=== PATIENT | female | born 1960 | race Caucasian/White ===

== ENCOUNTER 2017-09-22 15:37 | Emergency (ER) | payer OTHER ==
[2017-09-22 15:52] VITALS: BP 145/81; TEMP 97.9; BMI 27.4
--- NOTE | 2017-09-22 15:59 | PDOC ---
History of Present Illness - General Chief Complaint: Shortness of Breath Stated Complaint: RESPIRATORY Time Seen by Provider: 09/22/17 15:58 - History of Present Illness Initial Comments: 09/22/17 15:59 Ms. Chavez is a 56 yo female w/ pmh of COPD, hypertension, and HIV who presents c/o 2 day history of cough. She reports it started yesterday as she was driving home from visiting relatives and has persisted throughout the day. She has no other complaints but says "that is enough." Ms. Chavez tried a home breathing treatment but says it was not helpful for her cough. Allergies: Bactrim Past History - Past Medical History Allergies/Adverse Reactions: Allergies Allergy/AdvReac Type Severity Reaction Status Date / Time sulfamethoxazole Allergy Intermediate Rash Verified 09/22/17 15:48 [From Bactrim] Home Medications: Ambulatory Orders Aspirin [Aspirin EC] 81 mg PO DAILY #30 tablet. 04/24/17 Bupropion HCl [Wellbutrin -] 75 mg PO DAILY #30 tablet 04/24/17 Clotrimazole [Lotrimin 1% Cream -] 1 applic TP BID #1 tube 04/24/17 Cholecalciferol (Vitamin D3) [Vitamin D3] 50,000 unit PO MOFR 06/06/17 Guaifenesin [Mucinex -] 600 mg PO BID #14 tablet.er 06/06/17 Albuterol Sulfate Inhaler - [Ventolin HFA Inhaler -] 1 - 2 inh IH QID #1 inhaler 09/10/17 Atorvastatin Ca [Lipitor] 20 mg PO HS #30 tablet 09/10/17 Emtricitabine [Emtriva -] 1 tab PO DAILY #30 capsule 09/10/17 Etravirine [Intelence -] 200 mg PO BID #60 tablet 09/10/17 Hydrocortisone 1% Cream [Hytone 1% Cream -] 1 applic TP DAILY #1 tube 09/10/17 Ibuprofen [Motrin -] 600 mg PO BID PRN #30 tablet MDD 2 09/10/17 Lisinopril [Zestril] 10 mg PO DAILY #30 tablet 09/10/17 Multivitamin with Minerals [Icaps Plus] 1 each PO DAILY #30 tablet 09/10/17 Raltegravir [Isentress] 1 tab PO BID #60 tab 09/10/17 Theophylline Anhydrous [Ancelmo-24] 300 mg PO DAILY #30 cap.er.24h 09/10/17 Mirtazapine [Remeron -] 15 tablet PO HS #30 tablet 09/18/17 Prednisone 40 mg PO DAILY 4 Days #12 tablet 09/22/17 Anemia: No Asthma: Yes Cancer: No Cardiac Disorders: No CVA: No COPD: Yes CHF: No Dementia: No Diabetes: No GI Disorders: No Disorders: No HTN: Yes Hypercholesterolemia: No Liver Disease: No Seizures: No Thyroid Disease: No - Surgical History Abdominal Surgery: Yes (FOR ECTOPIC ) - Immunization History Immunization Up to Date: Yes - Suicide/Smoking/Psychosocial Hx Smoking Status: Yes Smoking History: Current every day smoker Have you smoked in the past 12 months: No Number of Cigarettes Smoked Daily: 10 Cigars Per Day: 0 Information on smoking cessation initiated: No 'Breaking Loose' booklet given: 03/11/15 Hx Alcohol Use: No Drug/Substance Use Hx: No Substance Use Type: None Hx Substance Use Treatment: Yes (detox, 12 step) Review of Systems - Review of Systems Comments:: 09/22/17 16:27 GENERAL/CONSTITUTIONAL: No fever or chills. No weakness. HEAD, EYES, EARS, NOSE AND THROAT: No change in vision. No ear pain or discharge. No sore throat. CARDIOVASCULAR: No chest pain or shortness of breath RESPIRATORY: +Cough as described. No wheezing or hemoptysis. GASTROINTESTINAL: No nausea, vomiting, diarrhea or constipation. GENITOURINARY: No dysuria, frequency, or change in urination. MUSCULOSKELETAL: No joint or muscle swelling or pain. No neck or back pain. SKIN: No rash NEUROLOGIC: No headache, vertigo, loss of consciousness, or change in strength/ sensation. ENDOCRINE: No increased thirst. No abnormal weight change HEMATOLOGIC/LYMPHATIC: No anemia, easy bleeding, or history of blood clots. ALLERGIC/IMMUNOLOGIC: No hives or skin allergy. *Physical Exam - Vital Signs Last Vital Signs Temp Pulse Resp BP Pulse Ox 97.9 F 104 H 20 145/81 95 09/22/17 15:48 09/22/17 15:48 09/22/17 15:48 09/22/17 15:48 09/22/17 15:48 - Physical Exam Comments: 09/22/17 16:28 GENERAL: Awake, alert, and fully oriented, in no acute distress HEAD: No signs of trauma, normocephalic, atraumatic EYES: PERRLA, EOMI, sclera anicteric, conjunctiva clear ENT: Auricles normal inspection, hearing grossly normal, nares patent, oropharynx clear without exudates. Moist mucosa NECK: Normal ROM, supple, no lymphadenopathy, JVD, or masses LUNGS: +End inspiratory wheezes appreciated. Lungs sound tight diffusely. No distress, speaks full sentences HEART: Regular rate and rhythm, normal S1 and S2, no murmurs, rubs or gallops, peripheral pulses normal and equal bilaterally. ABDOMEN: Soft, nontender, normoactive bowel sounds. No guarding, no rebound. No masses EXTREMITIES: Normal inspection, Normal range of motion, no edema. No clubbing or cyanosis. NEUROLOGICAL: Cranial nerves II through XII grossly intact. Normal speech, normal gait, no focal sensorimotor deficits SKIN: Warm, Dry, normal turgor, no rashes or lesions noted. ED Treatment Course - LABORATORY CBC & Chemistry Diagram: 09/22/17 16:26 09/22/17 16:26 Medical Decision Making - Medical Decision Making 09/22/17 17:00 Ms. Chavez is very concerned about bronchitis and pneumonia. Wanted to get checked out before "things got worse." With COPD history and tight lung exam will evaluate with CXR and provide breathing treatments for symptomatic relief. Provided no acute findings will give steroid treatment and discharge home with prednisone. 09/22/17 18:16 No acute findings on CXR. Rx for prednisone sent to pharmacy as planned. Patient verbalized understanding to f/u as needed for continued cough, new onset fever, chills, etc. *DC/Admit/Observation/Transfer Diagnosis at time of Disposition: Cough - Discharge Dispostion Disposition: HOME - Prescriptions Prescriptions: Prednisone 40 mg PO DAILY 4 Days #12 tablet - Referrals Referrals: Aniya Hagen GIRL FRIDAY [Primary Care Provider] - - Patient Instructions Printed Discharge Instructions: DI for Cough -- Adult Additional Instructions: Please take prednisone as proscribed for cough. Follow up with PCP as needed and return to ER if any new onset pain, fever, chills, worsening or continuing symptoms. - Post Discharge Activity
[2017-09-22] MEDS ORDERED: SODIUM CHLORIDE 1,000 ML IV STA (16:23)
[2017-09-22] MEDS ORDERED: ALBUTEROL SO4 2.5/IPRATROPIUM 0.5 INH SOL 3 ML VIAL.NEB. NEB ONE ×4 (16:39→18:08)
[2017-09-22] MEDS: ALBUTEROL SO4 2.5/IPRATROPIUM 0.5 INH SOL 3 ML VIAL.NEB. NEB SCH ×3 (16:42→17:30)
--- NOTE | 2017-09-22 16:44 | PDOC ---
Attending Attestation - HPI HPI: 09/22/17 16:44 The patient is a 56 year old female with a significant past medical history of chronic obstructive pulmonary disorder, hypertension, and HIV who presents to the ED with complaints of cough. The patient reports a sudden onset of a dry non productive cough yesterday. Patient tried breathing treatment at home with no relief. Denies fever or chills. Denies nausea, vomiting, or diarrhea. Denies chest pain. Denies any other symptoms. ROS: A complete review of 10 out of 10 review of systems is taken and is negative apart from what is previously mentioned below and in the HPI. - Physicial Exam PE: 09/22/17 16:44 Vitals: Triage Vital signs reviewed General Appearance: no acute distress, well nourished well developed Head: Atraumatic Neck: Supple; No Nucal rigidity Chest Wall: Nontender Cardiac: Regular rate and rhythm, no murmurs, no rubs, no gallops Lungs: + wheezing bilaterally. Abdomen: Soft, nondistended, normal bowel sounds, nontender to palpation Extremities: Full range of motion to all extremities, no cyanosis, clubbing, or edema Skin: Warm and dry, no rashes or lesions, no rash, no petechiae Neuro: AOX3; Cranial Nerves 2-12 grossly intact, Strength intact to all extremities, Sensation intact to all extremities, Psych: Normal mood, normal affects - Medical Decision Making 09/22/17 16:44 Documentation prepared by Krystal Meléndez, acting as medical records tech for Luis Cantrell MD <Krystal Meléndez - Last Filed: 09/22/17 16:44> - Resident Resident Name: Herber Barreto - ED Attending Attestation I have performed the following: I have examined & evaluated the patient, The case was reviewed & discussed with the resident, I agree w/resident's findings & plan, Exceptions are as noted - Medical Decision Making Well-appearing no apparent distress patient with viral URI same symptoms as her daughter has. Complicated by reactive airway disease Status post 2 nebs patient still with slight wheeze we'll treat with Solu- Medrol 1 additional neb and reassess. <Luis Cantrell - Last Filed: 09/22/17 17:59> Heart Score/ECG Review #1 09/22/17 16:45 EKG performed at 16:10 demonstrates rate of 90 bpm, rhythm of sinus, axis equal to normal. no T wave inversions, no ST elevations <Krystal Meléndez - Last Filed: 09/22/17 16:44>
[2017-09-22 16:47] LABS: BASOPHIL 0.8 % (0-2.0); EOSINOPHIL 0.4 % (0-4.5); MCH 32.6 pg (25.7-33.7); MEAN CELL VOLUME 95.8 fl (80-96); MEAN PLT VOLUME 9.9 fl (7.5-11.1); NEUTROPHILS 83.6 % (42.8-82.8); PLATELET COUNT 166 K/MM3 (134-434); RDW 13.4 % (11.6-15.6); WHITE BLOOD COUNT 8.3 K/mm3 (4.0-10.0)
[2017-09-22 17:16] LABS: ALBUMIN 3.7 g/dl (3.4-5.0); ANION GAP 6 (8-16); BILIRUBIN,TOTAL 0.3 mg/dL (0.2-1.0); CALCIUM 8.3 mg/dL (8.5-10.1); CO2 26 mmol/L (21-32); CREATININE 0.7 mg/dL (0.55-1.02); GLUCOSE,RANDOM 124 mg/dL (74-106); SGPT/ALT 22 U/L (12-78); TOT PROT 6.9 g/dl (6.4-8.2)
[2017-09-22 17:17] LABS: ALK PHOS 105 U/L (45-117)
[2017-09-22 17:19] LABS: SGOT/AST 12 U/L (15-37)
[2017-09-22] MEDS ORDERED: methylPREDNISolone NA SUCC 125 MG/2 ML VIAL IVPUSH ONE (17:56)
[2017-09-22 18:27] VITALS: PULSE 100
--- NOTE | 2017-09-23 14:06 | EKG ---
Test Reason : Blood Pressure : / mmHG Vent. Rate : 090 BPM Atrial Rate : 090 BPM P-R Int : 156 ms QRS Dur : 070 ms QT Int : 360 ms P-R-T Axes : 042 016 052 degrees QTc Int : 440 ms NORMAL SINUS RHYTHM CANNOT RULE OUT ANTERIOR INFARCT (CITED ON OR BEFORE 30-DEC-2008) LOW VOLTAGE QRS ABNORMAL ECG WHEN COMPARED WITH ECG OF 16-MAR-2012 08:30, NO SIGNIFICANT CHANGE WAS FOUND Confirmed by NIXON EAST MD ([id number]) on 09/23/2017 2:06:08 PM Referred By: Confirmed By:NIXON EAST MD
== END 2017-09-22 18:27 | disposition home or self-care (01) ==
LOC: JER 15:37
PROC: 3E0F7GC Introduction of Other Therapeutic Substance into Respiratory Tract, Via Natural or Artificial Opening (ICD-10-PCS; principal; 2017-09-22)
PROC: 3E0F7GC Introduction of Other Therapeutic Substance into Respiratory Tract, Via Natural or Artificial Opening (ICD-10-PCS; 2017-09-22)
PROC: 3E0337Z Introduction of Electrolytic and Water Balance Substance into Peripheral Vein, Percutaneous Approach (ICD-10-PCS; 2017-09-22)
PROC: 3E0333Z Introduction of Anti-inflammatory into Peripheral Vein, Percutaneous Approach (ICD-10-PCS; 2017-09-22)
DX: R05 Cough (principal); J44.9 Chronic obstructive pulmonary disease, unspecified; J45.909 Unspecified asthma, uncomplicated; I10 Essential (primary) hypertension; Z21 Asymptomatic human immunodeficiency virus [HIV] infection status; F17.210 Nicotine dependence, cigarettes, uncomplicated
CPT/HCPCS: 36415; 71020-TC; 80053; 85025; 87804; 93005; 93010; 94640; 96361; 96374; 99283-25

== ENCOUNTER 2017-11-13 10:35 | Emergency (ER) | payer OTHER ==
[2017-11-13 10:42] VITALS: TEMP 98.2; BMI 25.8
[2017-11-13] MEDS ORDERED: methylPREDNISolone NA SUCC 125 MG/2 ML VIAL IVPUSH ONE (10:53)
--- NOTE | 2017-11-13 10:53 | PDOC ---
History of Present Illness - General Chief Complaint: Shortness of Breath Stated Complaint: ASTHMA, SOB Time Seen by Provider: 11/13/17 10:49 - History of Present Illness Initial Comments: 11/13/17 10:54 56 F with h/o COPD, HTN, HIV (on HAART, last VL undetectable), presenting with 2 days of SOB and chest tightness. Pt states that it began last night at rest. Reports that it feels like a COPD flare but worse. She reports subjective fevers and chills but only measured a tempt of 99.0. Pt states that she used her nebulizers at home and took half a pill of prednisone without any improvement. She denies leg swelling. Denies recent travel/immobilization. No h/ o DVT/PE. Past History - Past Medical History Allergies/Adverse Reactions: Allergies Allergy/AdvReac Type Severity Reaction Status Date / Time sulfamethoxazole Allergy Intermediate Rash Verified 11/13/17 10:42 [From Bactrim] Home Medications: Ambulatory Orders Aspirin [Aspirin EC] 81 mg PO DAILY #30 tablet. 04/24/17 Bupropion HCl [Wellbutrin -] 75 mg PO DAILY #30 tablet 04/24/17 Clotrimazole [Lotrimin 1% Cream -] 1 applic TP BID #1 tube 04/24/17 Cholecalciferol (Vitamin D3) [Vitamin D3] 50,000 unit PO MOFR 06/06/17 Guaifenesin [Mucinex -] 600 mg PO BID #14 tablet.er 06/06/17 Albuterol Sulfate Inhaler - [Ventolin HFA Inhaler -] 1 - 2 inh IH QID #1 inhaler 09/10/17 Atorvastatin Ca [Lipitor] 20 mg PO HS #30 tablet 09/10/17 Emtricitabine [Emtriva -] 1 tab PO DAILY #30 capsule 09/10/17 Etravirine [Intelence -] 200 mg PO BID #60 tablet 09/10/17 Hydrocortisone 1% Cream [Hytone 1% Cream -] 1 applic TP DAILY #1 tube 09/10/17 Ibuprofen [Motrin -] 600 mg PO BID PRN #30 tablet MDD 2 09/10/17 Lisinopril [Zestril] 10 mg PO DAILY #30 tablet 09/10/17 Multivitamin with Minerals [Icaps Plus] 1 each PO DAILY #30 tablet 09/10/17 Raltegravir [Isentress] 1 tab PO BID #60 tab 09/10/17 Theophylline Anhydrous [Ancelmo-24] 300 mg PO DAILY #30 cap.er.24h 09/10/17 Mirtazapine [Remeron -] 15 tablet PO HS #30 tablet 09/18/17 Prednisone 40 mg PO DAILY 4 Days #12 tablet 09/22/17 Azithromycin 250 mg PO DAILY #4 tablet 11/13/17 Prednisone [Prednisone 50 MG TABLETS] 50 mg PO DAILY #4 tablet 11/13/17 Anemia: No Asthma: Yes Cancer: No Cardiac Disorders: No CVA: No COPD: Yes CHF: No DVT: No Dementia: No Diabetes: No GI Disorders: No Disorders: No HTN: Yes Hypercholesterolemia: No Liver Disease: No Seizures: No Thyroid Disease: No Other medical history: SLEEP APNEA - Surgical History Abdominal Surgery: Yes (FOR ECTOPIC ) - Immunization History Immunization Up to Date: Yes - Suicide/Smoking/Psychosocial Hx Smoking Status: Yes Smoking History: Current every day smoker Have you smoked in the past 12 months: No Number of Cigarettes Smoked Daily: 20 Cigars Per Day: 0 Information on smoking cessation initiated: No 'Breaking Loose' booklet given: 03/11/15 Hx Alcohol Use: No Drug/Substance Use Hx: No Substance Use Type: None Hx Substance Use Treatment: Yes (detox, 12 step) Respiratory Specific PMHX - Complaint Specific PMHX Bronchitis: Yes TB (Tuberculosis): No Review of Systems - Review of Systems Comments:: 11/13/17 10:56 "GENERAL/CONSTITUTIONAL: No fever or chills. No weakness. HEAD, EYES, EARS, NOSE AND THROAT: No change in vision. No ear pain or discharge. No sore throat. CARDIOVASCULAR: + chest pressure RESPIRATORY: + SOB GASTROINTESTINAL: No nausea, vomiting, diarrhea or constipation. GENITOURINARY: No dysuria, frequency, or change in urination. MUSCULOSKELETAL: No joint or muscle swelling or pain. No neck or back pain. SKIN: No rash NEUROLOGIC: No headache, vertigo, loss of consciousness, or change in strength/ sensation. ENDOCRINE: No increased thirst. No abnormal weight change. HEMATOLOGIC/LYMPHATIC: No anemia, easy bleeding, or history of blood clots. ALLERGIC/IMMUNOLOGIC: No hives or skin allergy. " *Physical Exam - Vital Signs Last Vital Signs Temp Pulse Resp BP Pulse Ox 98.2 F 133 H 24 128/63 92 L 11/13/17 10:39 11/13/17 10:39 11/13/17 10:39 11/13/17 10:39 11/13/17 10:39 - Physical Exam Comments: 11/13/17 10:56 "GENERAL: Awake, alert, and fully oriented, in no acute distress HEAD: No signs of trauma EYES: PERRLA, EOMI, sclera anicteric, conjunctiva clear ENT: Auricles normal inspection, hearing grossly normal, nares patent, oropharynx clear without exudates. Moist mucosa NECK: Nontender, no stepoffs, Normal ROM, supple, no lymphadenopathy, JVD, or masses LUNGS: + inspiratory and expiratory wheezes, no rales or rhonchi HEART: Regular rate and rhythm, normal S1 and S2, no murmurs, rubs or gallops ABDOMEN: Soft, nontender, normoactive bowel sounds. No guarding, no rebound. No masses EXTREMITIES: Normal range of motion, no edema. No clubbing or cyanosis. No cords, erythema, or tenderness NEUROLOGICAL: Cranial nerves II through XII intact. 5/5 strength and sensation in all extremities, Normal speech, normal gait SKIN: Warm, Dry, normal turgor, no rashes or lesions noted. " ED Treatment Course - LABORATORY CBC & Chemistry Diagram: 11/13/17 12:05 11/13/17 12:05 - RADIOLOGY Radiology Studies Ordered: Category Date Time Status CHEST PA & LAT [RAD] Stat Radiology 11/13/17 10:53 Ordered Medical Decision Making - Medical Decision Making 11/13/17 10:57 56 F wit HIV, COPD, presenting with SOB and chest pressure. Found to be tachycardic and hypoxic in ER, with wheezes bilaterally on exam. Likely COPD flare. Pt with no evidence of volume overload on exam. No clinical signs of DVT. - Labs - CXR - Nebs, steroids, abx 11/13/17 13:24 CXR clear CBC,CMP WBC 10.3 K/mm3 (4.0-10.0) H 11/13/17 12:05 RBC 4.40 M/mm3 (3.60-5.2) 11/13/17 12:05 Hgb 13.7 GM/dL (10.7-15.3) 11/13/17 12:05 Hct 41.9 % (32.4-45.2) 11/13/17 12:05 MCV 95.3 fl (80-96) 11/13/17 12:05 MCH 31.1 pg (25.7-33.7) 11/13/17 12:05 MCHC 32.7 g/dl (32.0-36.0) 11/13/17 12:05 RDW 13.3 % (11.6-15.6) 11/13/17 12:05 Plt Count 196 K/MM3 (134-434) 11/13/17 12:05 MPV 9.3 fl (7.5-11.1) 11/13/17 12:05 Neutrophils % 79.7 % (42.8-82.8) 11/13/17 12:05 Lymphocytes % 11.7 % (8-40) 11/13/17 12:05 Monocytes % 8.0 % (3.8-10.2) D 11/13/17 12:05 Eosinophils % 0.1 % (0-4.5) 11/13/17 12:05 Basophils % 0.5 % (0-2.0) 11/13/17 12:05 Sodium 140 mmol/L (136-145) 11/13/17 12:05 Potassium 4.4 mmol/L (3.5-5.1) 11/13/17 12:05 Chloride 106 mmol/L (98-107) 11/13/17 12:05 Carbon Dioxide 25 mmol/L (21-32) 11/13/17 12:05 Anion Gap 9 (8-16) 11/13/17 12:05 BUN 14 mg/dL (7-18) 11/13/17 12:05 Creatinine 0.9 mg/dL (0.55-1.02) 11/13/17 12:05 Creat Clearance w eGFR > 60 (>60) 11/13/17 12:05 Random Glucose 109 mg/dL (74-106) H 11/13/17 12:05 Calcium 9.5 mg/dL (8.5-10.1) 11/13/17 12:05 Total Bilirubin 0.4 mg/dL (0.2-1.0) D 11/13/17 12:05 AST 18 U/L (15-37) D 11/13/17 12:05 ALT 23 U/L (12-78) 11/13/17 12:05 Alkaline Phosphatase 91 U/L (45-117) 11/13/17 12:05 LD Total 182 U/L (84-246) 11/13/17 12:05 Creatine Kinase 332 IU/L (26-192) H 11/13/17 12:05 Troponin I < 0.02 ng/ml (0.00-0.05) 11/13/17 12:05 B-Natriuretic Peptide 329.91 pg/ml (5-125) H 11/13/17 12:05 Total Protein 7.6 g/dl (6.4-8.2) 11/13/17 12:05 Albumin 4.1 g/dl (3.4-5.0) 11/13/17 12:05 Labs unremarkable. Pt re-evaluated s/p nebs and steroids. Now reports complete resolution of symptoms. Lung exam clear at this time with no wheezing. Will recheck vitals. 11/13/17 15:52 Vitals improving. Pt still slightly tachycardic but likely 2/2 beta agonist. Lungs remain clear. Pt with improved O2 sat. Pt well appearing, clinically stable for DC at this time. I discussed the physical exam findings, ancillary test results and final diagnoses with the patient. I answered all of the patient's questions. The patient was satisfied with the care received and felt comfortable with the discharge plan and treatment plan. The patient agrees to follow up with the primary care physician within 24-72 hours. *DC/Admit/Observation/Transfer Diagnosis at time of Disposition: COPD (chronic obstructive pulmonary disease) - Discharge Dispostion Disposition: HOME Condition at time of disposition: Improved - Prescriptions Prescriptions: Azithromycin 250 mg PO DAILY #4 tablet Prednisone [Prednisone 50 MG TABLETS] 50 mg PO DAILY #4 tablet - Referrals Referrals: Aniya Hagen NP [Primary Care Provider] - Júnior Stone MD [Staff Physician] - - Patient Instructions Printed Discharge Instructions: DI for Chronic Obstructive Pulmonary Disease Additional Instructions: Use your albuterol nebulizer every 4 hours as needed for coughing or wheezing. Take the prednisone and azithromycin as prescribed for 4 more days. If you experience any worsening chest pain, shortness of breath, fevers, or any other concerning symptoms, return to the ER immediately. Otherwise, follow up with your primary doctor or a co chairman within 1 week. Call the number provided to make an appointment with our co chairman. - Post Discharge Activity - Attestations Physician Attestion: 11/13/17 15:54 I, Dr. Dayton Galaviz MD, attest that this document has been prepared under my direction and personally reviewed by me in its entirety. I further attest, that it accurately reflects all work, treatment, procedures and medical decision -making performed by me.
[2017-11-13] MEDS ORDERED: ALBUTEROL SO4 2.5/IPRATROPIUM 0.5 INH SOL 3 ML VIAL.NEB. NEB ONE (11:24)
[2017-11-13] MEDS ORDERED: methylPREDNISolone NA SUCC 125 MG/2 ML VIAL ONE (11:24)
[2017-11-13] MEDS: ALBUTEROL SO4 2.5/IPRATROPIUM 0.5 INH SOL 3 ML VIAL.NEB. NEB SCH ×2 (11:29→11:55)
[2017-11-13 12:17] LABS: BASO % 0.5 % (0-2.0); EOS % 0.1 % (0-4.5); HEMATOCRIT 41.9 % (32.4-45.2); HEMOGLOBIN 13.7 GM/dL (10.7-15.3); LYMPH % 11.7 % (8-40); MCH 31.1 pg (25.7-33.7); MCHC 32.7 g/dl (32.0-36.0); MEAN CELL VOLUME 95.3 fl (80-96); MEAN PLT VOLUME 9.3 fl (7.5-11.1); NEUT % 79.7 % (42.8-82.8); PLATELET COUNT 196 K/MM3 (134-434); RDW 13.3 % (11.6-15.6); WHITE BLOOD COUNT 10.3 K/mm3 (4.0-10.0)
[2017-11-13 12:33] LABS: PROTHROMBIN TIME (PATIENT) 11.3 SEC (9.98-11.88)
[2017-11-13 12:36] LABS: ACTIVATED PTT 28.6 SECONDS (26.9-34.4)
[2017-11-13 12:38] LABS: ALBUMIN 4.1 g/dl (3.4-5.0); ANION GAP 9 (8-16); BLOOD UREA NITROGEN 14 mg/dL (7-18); CALCIUM 9.5 mg/dL (8.5-10.1); CHLORIDE 106 mmol/L (98-107); CO2 25 mmol/L (21-32); CREATININE 0.9 mg/dL (0.55-1.02); GLUCOSE,RANDOM 109 mg/dL (74-106); POTASSIUM 4.4 mmol/L (3.5-5.1); SGOT/AST 18 U/L (15-37); SGPT/ALT 23 U/L (12-78); SODIUM 140 mmol/L (136-145)
[2017-11-13] MEDS ORDERED: ALBUTEROL SO4 0.083% IH SOL 2.5 MG/3 ML VIAL.NEB. NEB ONE ×2 (12:41→12:42)
[2017-11-13] MEDS ORDERED: AZITHROMYCIN 500 MG TABLET PO ONE (12:41)
[2017-11-13 12:42] LABS: ALK PHOS 91 U/L (45-117); BILIRUBIN,TOTAL 0.4 mg/dL (0.2-1.0); LDH 182 U/L (84-246); N-TERMINAL BNP 329.91 pg/ml (5-125); TOT PROT 7.6 g/dl (6.4-8.2)
[2017-11-13] MEDS ORDERED: MAGNESIUM SULF 50% (8.12 MEQ/2 ML-1 GM VIAL) ONE (12:42)
[2017-11-13] MEDS ORDERED: AZITHROMYCIN 250 MG TABLET ONE (12:42)
[2017-11-13] MEDS ORDERED: SODIUM CHLORIDE 1,000 ML IV STA (13:52)
--- NOTE | 2017-11-13 15:23 | EKG ---
Test Reason : Blood Pressure : / mmHG Vent. Rate : 108 BPM Atrial Rate : 108 BPM P-R Int : 150 ms QRS Dur : 066 ms QT Int : 324 ms P-R-T Axes : 066 072 063 degrees QTc Int : 434 ms SINUS TACHYCARDIA OTHERWISE NORMAL ECG WHEN COMPARED WITH ECG OF 22-SEP-2017 16:10, BORDERLINE CRITERIA FOR INFERIOR INFARCT ARE NO LONGER PRESENT Confirmed by SHANTELL TAYLOR MD ([id number]) on 11/13/2017 3:23:03 PM Referred By: Confirmed By:SHANTELL TAYLOR MD
[2017-11-13 15:38] VITALS: BP 123/88; PULSE 116
== END 2017-11-13 16:18 | disposition home or self-care (01) ==
LOC: JER 10:35
PROC: 3E0F7GC Introduction of Other Therapeutic Substance into Respiratory Tract, Via Natural or Artificial Opening (ICD-10-PCS; principal; 2017-11-13)
PROC: 3E0F7GC Introduction of Other Therapeutic Substance into Respiratory Tract, Via Natural or Artificial Opening (ICD-10-PCS; 2017-11-13)
PROC: 3E033GC Introduction of Other Therapeutic Substance into Peripheral Vein, Percutaneous Approach (ICD-10-PCS; 2017-11-13)
PROC: 3E033NZ Introduction of Analgesics, Hypnotics, Sedatives into Peripheral Vein, Percutaneous Approach (ICD-10-PCS; 2017-11-13)
PROC: 3E0333Z Introduction of Anti-inflammatory into Peripheral Vein, Percutaneous Approach (ICD-10-PCS; 2017-11-13)
DX: J44.9 Chronic obstructive pulmonary disease, unspecified (principal); I10 Essential (primary) hypertension; J45.909 Unspecified asthma, uncomplicated; Z21 Asymptomatic human immunodeficiency virus [HIV] infection status; F17.210 Nicotine dependence, cigarettes, uncomplicated
CPT/HCPCS: 36415; 71046-TC; 80053; 82550; 82553; 83615; 83880; 84484; 85025; 85610; 85730; 87040; 93005; 93010; 99284-25

== ENCOUNTER 2018-01-25 10:58 | Emergency (ER) | payer OTHER ==
[2018-01-25 11:16] VITALS: TEMP 98.2; BMI 28.3
[2018-01-25] MEDS ORDERED: ACETAMINOPHEN 500 MG TABLET (FP) PO ONE (11:44)
[2018-01-25] MEDS ORDERED: METHOCARBAMOL 500 MG TABLET PO ONE (11:44)
[2018-01-25] MEDS ORDERED: ACETAMINOPHEN 325 MG TABLET (FP) ONE (11:47)
[2018-01-25] MEDS ORDERED: METHOCARBAMOL 500 MG TABLET ONE (11:47)
[2018-01-25] MEDS ORDERED: morphine CARPU-JECT 4 MG/1 ML DISP.SYRIN IVPUSH ONE (12:03)
[2018-01-25] MEDS ORDERED: SODIUM CHLORIDE 1,000 ML IV STA (12:03)
[2018-01-25] MEDS ORDERED: KETOROLAC TROMETHAMINE 30 MG/1 ML VIAL IVPUSH ONE (12:03)
[2018-01-25] MEDS ORDERED: morphine SULFATE 4 MG/ML VIAL ONE (12:17)
[2018-01-25] MEDS ORDERED: KETOROLAC TROMETHAMINE 30 MG/1 ML VIAL ONE (12:17)
[2018-01-25 12:26] LABS: HEMATOCRIT 39.9 % (32.4-45.2); HEMOGLOBIN 13.7 GM/dL (10.7-15.3); LYMPH % 41.8 % (8-40); MCHC 34.3 g/dl (32.0-36.0); MEAN CELL VOLUME 93.3 fl (80-96); MEAN PLT VOLUME 9.7 fl (7.5-11.1); MONO % 6.6 % (3.8-10.2); NEUT % 47.6 % (42.8-82.8); PLATELET COUNT 180 K/MM3 (134-434); RBC 4.28 M/mm3 (3.60-5.2); RDW 13.1 % (11.6-15.6); WHITE BLOOD COUNT 9.4 K/mm3 (4.0-10.0)
[2018-01-25 12:28] LABS: URINE APPEARANCE CLEAR; URINE BILIRUBIN NEGATIVE (<2.0 mg/dL); URINE BLOOD 1+ (NEGATIVE); URINE COLOR STRAW; URINE GLUCOSE (UA) NEGATIVE (NEGATIVE); URINE KETONE NEGATIVE (NEGATIVE); URINE LEUK ESTERASE NEGATIVE (NEGATIVE); URINE NITRITE NEGATIVE (NEGATIVE); URINE PROTEIN NEGATIVE (NEGATIVE); URINE UROBILINOGEN NEGATIVE mg/dL (0.2-1.0)
--- NOTE | 2018-01-25 12:28 | PDOC ---
History of Present Illness - General Chief Complaint: Back Pain Stated Complaint: BACK PAIN Time Seen by Provider: 01/25/18 11:33 History Source: Patient Exam Limitations: No Limitations - History of Present Illness Initial Comments: 01/25/18 12:30 Patient is 57F with history of COPD, HTN, HIV (last CD4 count 1368 in 09/13) here today complaining of back pain for 1 week after tripping and falling on a marble. Patient states that she was stepping out of the shower when she slipped on a marble, falling and twisting her back. She denies head trauma, landing on her back and LOC. She states the back pain has worsened over the past day, and that she has had to crawl to the bathroom. She states that the pain radiates from the left side of her back to the left side of her groin. Denies pain with urination, denies difficulty with urination. Denies saddle anesthesia, IV drug use, fevers, chills, focal weakness. Patient states that she has chronic back pain problems, but that it's usually on the left side. Patient states that she feels like she can't get comfortable. Past History - Past Medical History Allergies/Adverse Reactions: Allergies Allergy/AdvReac Type Severity Reaction Status Date / Time sulfamethoxazole Allergy Intermediate Rash Verified 01/25/18 11:13 [From Bactrim] Home Medications: Ambulatory Orders Aspirin [Aspirin EC] 81 mg PO DAILY #30 tablet. 04/24/17 Bupropion HCl [Wellbutrin -] 75 mg PO DAILY #30 tablet 04/24/17 Clotrimazole [Lotrimin 1% Cream -] 1 applic TP BID #1 tube 04/24/17 Cholecalciferol (Vitamin D3) [Vitamin D3] 50,000 unit PO MOFR 06/06/17 Guaifenesin [Mucinex -] 600 mg PO BID #14 tablet.er 06/06/17 Albuterol Sulfate Inhaler - [Ventolin HFA Inhaler -] 1 - 2 inh IH QID #1 inhaler 09/10/17 Atorvastatin Ca [Lipitor] 20 mg PO HS #30 tablet 09/10/17 Emtricitabine [Emtriva -] 1 tab PO DAILY #30 capsule 09/10/17 Etravirine [Intelence -] 200 mg PO BID #60 tablet 09/10/17 Hydrocortisone 1% Cream [Hytone 1% Cream -] 1 applic TP DAILY #1 tube 09/10/17 Ibuprofen [Motrin -] 600 mg PO BID PRN #30 tablet MDD 2 09/10/17 Lisinopril [Zestril] 10 mg PO DAILY #30 tablet 09/10/17 Multivitamin with Minerals [Icaps Plus] 1 each PO DAILY #30 tablet 09/10/17 Raltegravir [Isentress] 1 tab PO BID #60 tab 09/10/17 Theophylline Anhydrous [Ancelmo-24] 300 mg PO DAILY #30 cap.er.24h 09/10/17 Mirtazapine [Remeron -] 15 tablet PO HS #30 tablet 09/18/17 Prednisone 40 mg PO DAILY 4 Days #12 tablet 09/22/17 Azithromycin 250 mg PO DAILY #4 tablet 11/13/17 Prednisone [Prednisone 50 MG TABLETS] 50 mg PO DAILY #4 tablet 11/13/17 Oxycodone HCl/Acetaminophen [Percocet 5-325 mg Tablet -] 1 tab PO TID PRN #12 tablet MDD 3 01/25/18 Anemia: No Asthma: Yes Cancer: No Cardiac Disorders: No CVA: No COPD: Yes CHF: No DVT: No Dementia: No Diabetes: No GI Disorders: No Disorders: No HTN: Yes Hypercholesterolemia: No Liver Disease: No Seizures: No Thyroid Disease: No - Surgical History Abdominal Surgery: Yes (FOR ECTOPIC ) - Immunization History Immunization Up to Date: Yes - Suicide/Smoking/Psychosocial Hx Smoking Status: Yes Smoking History: Current every day smoker Have you smoked in the past 12 months: No Number of Cigarettes Smoked Daily: 20 Cigars Per Day: 0 Information on smoking cessation initiated: No 'Breaking Loose' booklet given: 03/11/15 Hx Alcohol Use: No Drug/Substance Use Hx: No Substance Use Type: None Hx Substance Use Treatment: Yes (detox, 12 step) Review of Systems - Review of Systems Comments:: 01/25/18 12:34 GENERAL/CONSTITUTIONAL: No fever or chills. No weakness. HEAD, EYES, EARS, NOSE AND THROAT: No change in vision. No sore throat. CARDIOVASCULAR: No chest pain or shortness of breath RESPIRATORY: No cough, wheezing, or hemoptysis. GASTROINTESTINAL: No nausea, vomiting, diarrhea or constipation. GENITOURINARY: No dysuria, frequency, or change in urination. MUSCULOSKELETAL: No joint or muscle swelling or pain. Positive for back pain. SKIN: No rash NEUROLOGIC: No headache, vertigo, loss of consciousness, or change in strength/ sensation. HEMATOLOGIC/LYMPHATIC: No anemia, easy bleeding, or history of blood clots. ALLERGIC/IMMUNOLOGIC: No hives or skin allergy. *Physical Exam - Vital Signs Last Vital Signs Temp Pulse Resp BP Pulse Ox 98.2 F 80 18 106/90 95 01/25/18 11:13 01/25/18 11:13 01/25/18 11:13 01/25/18 11:13 01/25/18 11:13 - Physical Exam Comments: 01/25/18 12:34 GENERAL: Awake, alert, and fully oriented, tearful, on her side HEAD: No signs of trauma, normocephalic, atraumatic EYES: PERRLA, EOMI, sclera anicteric, conjunctiva clear ENT: Auricles normal inspection, hearing grossly normal, nares patent, oropharynx clear without exudates. Moist mucosa NECK: Normal ROM, supple, no lymphadenopathy, JVD, or masses BACK: No signs of trauma, nontender midline, distractable tenderness on left paraspinal issues. LUNGS: No distress, speaks full sentences, clear to auscultation bilaterally HEART: Regular rate and rhythm, normal S1 and S2, no murmurs, rubs or gallops, peripheral pulses normal and equal bilaterally. ABDOMEN: Soft, nontender, normoactive bowel sounds. No guarding, no rebound. No masses EXTREMITIES: Normal inspection, Normal range of motion, no edema. No clubbing or cyanosis. NEUROLOGICAL: Cranial nerves II through XII grossly intact. Normal speech, no focal sensorimotor deficits SKIN: Warm, Dry, normal turgor, no rashes or lesions noted. ED Treatment Course - LABORATORY CBC & Chemistry Diagram: 01/25/18 12:10 01/25/18 12:10 - RADIOLOGY Radiology Studies Ordered: Category Date Time Status SPIRAL- RENAL-STONE CT [CT] Stat CT Scan 01/25/18 12:06 Ordered - Medications Given in the ED: ED Medications Discontinued Medications Generic Name Dose Route Start Last Admin Trade Name Freq PRN Reason Stop Dose Admin Acetaminophen 975 mg 01/25/18 11:44 01/25/18 11:49 Tylenol - PO 01/25/18 11:45 975 mg ONCE ONE Administration Ketorolac Tromethamine 30 mg 01/25/18 12:03 01/25/18 12:20 Toradol Injection - IVPUSH 01/25/18 12:04 30 mg ONCE ONE Administration Methocarbamol 500 mg 01/25/18 11:44 01/25/18 11:49 Robaxin - PO 01/25/18 11:45 500 mg ONCE ONE Administration Morphine Sulfate 4 mg 01/25/18 12:03 01/25/18 12:20 Morphine Injection - IVPUSH 01/25/18 12:04 4 mg ONCE ONE Administration Medical Decision Making - Medical Decision Making 01/25/18 12:35 Patient is 57F with history of COPD, HTN, HIV here today complaining of back pain. Vital signs stable and normal. Exam not very consistent with msk back pain. Concerned for kidney stones with confounding presentation. DDx includes, but is not limited to: MSK back pain, kidney stones, pyleonephritis. Bedside ultrasound used to visualize aorta with maximal caliber 1.4cm. Will evaluate further with cbc, cmp, ua, uc, spiral ct. Will treat with morphine, toradol and fluids. 01/25/18 13:26 Laboratory Tests 01/25/18 01/25/18 01/25/18 12:10 12:10 12:10 WBC 9.4 Hgb 13.7 Hct 39.9 Plt Count 180 BUN 16 Creatinine 0.6 Urine Blood 1+ H CBC normal. CMP reassuring. UA shows blood, no signs of infection. CT pending. Patient reassessed, says she feels much better after administration of morphine and toradol. 01/25/18 15:08 CT shows L2-L3 foraminal disc herniation that is probably extruded. No kidney stones, possible cholelithiasis, and aortic wall calcifications. 01/25/18 15:18 Patient reassessed. Pain improved. Able to ambulate. Will discharge home with pain medication and instructions to follow up with primary care physician. *DC/Admit/Observation/Transfer Diagnosis at time of Disposition: Herniated disc - Discharge Dispostion Disposition: HOME Condition at time of disposition: Good Admit: No - Prescriptions Prescriptions: Oxycodone HCl/Acetaminophen [Percocet 5-325 mg Tablet -] 1 tab PO TID PRN #12 tablet MDD 3 PRN Reason: Severe Pain - Referrals - Patient Instructions Printed Discharge Instructions: DI for Herniated Disc Additional Instructions: You were seen today in the ED for back pain. You have a herniated disc in your back. You have been prescribed percocet for pain control. Please do not take the medication and use heavy machinery or mix with alcohol. Please return if you have any new, worsening or concerning symptoms. Please follow up with your primary care physician this week. - Post Discharge Activity
[2018-01-25 12:38] LABS: EPI CELLS RARE /HPF (FEW); URINE MUCUS RARE
[2018-01-25 12:51] LABS: ALBUMIN 3.9 g/dl (3.4-5.0); ALK PHOS 87 U/L (45-117); ANION GAP 3 (8-16); BILIRUBIN,TOTAL 0.5 mg/dL (0.2-1.0); BLOOD UREA NITROGEN 16 mg/dL (7-18); CALCIUM 8.9 mg/dL (8.5-10.1); CHLORIDE 112 mmol/L (98-107); CO2 24 mmol/L (21-32); CREATININE 0.6 mg/dL (0.55-1.02); GLUCOSE,RANDOM 94 mg/dL (74-106); POTASSIUM 3.7 mmol/L (3.5-5.1); SGOT/AST 12 U/L (15-37); SGPT/ALT 22 U/L (12-78); SODIUM 139 mmol/L (136-145); TOT PROT 6.9 g/dl (6.4-8.2)
--- NOTE | 2018-01-25 13:02 | PDOC ---
Attending Attestation - Resident Resident Name: LeninRyan - ED Attending Attestation I have performed the following: I have examined & evaluated the patient, The case was reviewed & discussed with the resident, I agree w/resident's findings & plan, Exceptions are as noted - HPI HPI: 01/25/18 12:42 57 yo F presenting with back painx 1 week s/p fall from standing height She twisted her back Pt ambulatory since then but her pain worsened today She was unable to ambulate Pain in - Physicial Exam PE: 01/25/18 12:45 GENERAL: The patient is crying in pain HEAD: Normal with no signs of trauma. EYES: PERRLA, EOMI, sclera anicteric, conjunctiva clear. LUNGS: Breath sounds equal, clear to auscultation bilaterally. No wheezes, and no crackles. HEART:Regular rate and rhythm, normal S1 and S2 without murmur, rub or gallop. ABDOMEN: Soft, nontender, normoactive bowel sounds. EXTREMITIES: Normal range of motion NEUROLOGICAL: Cranial nerves II through XII grossly intact. Normal speech. No focal neurological deficits. MUSCULOSKELETAL: Left paraspinal back tenderness - Medical Decision Making 01/25/18 15:20 57 yo F presenting with back pain CT demonstrates lumbar herniation Pt is ambulatory with severe pain Will: give pain medications Will re assess clinical impression: lower back pain, initial presentation
[2018-01-25 15:29] VITALS: BP 127/92; PULSE 90
--- NOTE | 2018-01-26 16:17 | EKG ---
Test Reason : Blood Pressure : / mmHG Vent. Rate : 075 BPM Atrial Rate : 075 BPM P-R Int : 170 ms QRS Dur : 074 ms QT Int : 420 ms P-R-T Axes : 051 027 060 degrees QTc Int : 469 ms NORMAL SINUS RHYTHM POSSIBLE INFERIOR INFARCT , AGE UNDETERMINED INCOMPLETE RBBB ABNORMAL ECG Confirmed by MD KAYLEE, KAYKAY ([id number]) on 01/26/2018 4:17:13 PM Referred By: Confirmed By:KAYKAY PAGE MD
--- NOTE | 2018-01-28 16:57 | PN ---
Holistic Progress Note Subjective: TC from patient - seen in ED at [facility] 01/25/18 for severe back pain due to fall - still in pain, no incontinence - noted CT results - referred to see dr glaser but she is not sure she can get to [facility] - referred to dr florez. will give flexeril, continue percocet 5 until she can see me next week. States her daughter is staying with her and helping. Teary, states her pain is excruciating. Using CPAP machine. Patient is known to me but I have not seen her since august 2017. Updated, reviewed medications she is currently taking. Plan: f/u with dr florez and/or alfredito - f/u with me next week saturday02/04/18 and will refer for PT, consider need for MRI to go back to ED if red flags (incontinence, worsening pain) - Medications Home Medications: Home Medications Medication Instructions Recorded Cholecalciferol (Vitamin D3) 50,000 unit PO MOFR 06/06/17 [Vitamin D3] Albuterol Sulfate Inhaler - 1 - 2 inh IH QID #1 inhaler 09/10/17 [Ventolin HFA Inhaler -] Emtricitabine [Emtriva -] 1 tab PO DAILY #30 capsule 09/10/17 Etravirine [Intelence -] 200 mg PO BID #60 tablet 09/10/17 Multivitamin with Minerals [Icaps 1 each PO DAILY #30 tablet 09/10/17 Plus] Raltegravir [Isentress] 1 tab PO BID #60 tab 09/10/17 Theophylline Anhydrous [Ancelmo-24] 300 mg PO DAILY #30 cap.er.24h 09/10/17 Oxycodone HCl/Acetaminophen 1 tab PO TID PRN #12 tablet MDD 5 01/25/18 [Percocet 5-325 mg Tablet -] Cyclobenzaprine HCl [Flexeril -] 10 mg PO TID #90 tablet 01/28/18 Oxycodone HCl/Acetaminophen 1 each PO TID PRN #21 tablet MDD 3 01/28/18 [Oxycodone-Acetaminophen 5-325]
== END 2018-01-25 15:33 | disposition home or self-care (01) ==
LOC: JER 10:58
PROC: 3E0337Z Introduction of Electrolytic and Water Balance Substance into Peripheral Vein, Percutaneous Approach (ICD-10-PCS; principal; 2018-01-25)
PROC: 3E033NZ Introduction of Analgesics, Hypnotics, Sedatives into Peripheral Vein, Percutaneous Approach (ICD-10-PCS; 2018-01-25)
PROC: 3E0333Z Introduction of Anti-inflammatory into Peripheral Vein, Percutaneous Approach (ICD-10-PCS; 2018-01-25)
DX: M51.26 Other intervertebral disc displacement, lumbar region (principal); W01.0XXA Fall on same level from slipping, tripping and stumbling without subsequent striking against object, initial encounter; Y93.E1 Activity, personal bathing and showering; Y92.031 Bathroom in apartment as the place of occurrence of the external cause; Y99.8 Other external cause status; I10 Essential (primary) hypertension; J44.9 Chronic obstructive pulmonary disease, unspecified; J45.909 Unspecified asthma, uncomplicated; Z21 Asymptomatic human immunodeficiency virus [HIV] infection status; F17.210 Nicotine dependence, cigarettes, uncomplicated
CPT/HCPCS: 36415; 74176; 80053; 81003; 81015; 85025; 87086; 93005; 93010; 96361; 96374; 96375; 99283-25; J7030

== ENCOUNTER 2018-02-25 19:30 | Emergency (ER) | payer OTHER ==
--- NOTE | 2018-02-25 19:37 | PDOC ---
Rapid Medical Evaluation Time Seen by Provider: 02/25/18 19:35 Medical Evaluation: Allergies Allergy/AdvReac Type Severity Reaction Status Date / Time sulfamethoxazole Allergy Intermediate Rash Verified 01/25/18 11:13 [From Bactrim] 02/25/18 19:35 I have performed a brief in-person evaluation of this patient. The patient presents with a chief complaint of: R 5th toe injury yesterday Pertinent physical exam findings:minimal ecchymosis w/ ttp I have ordered the following:xray The patient will proceed to the ED for further evaluation. Discharge Disposition - Diagnosis Toe injury Qualifiers: Encounter type: initial encounter Laterality: right Qualified Code(s): S99.921A - Unspecified injury of right foot, initial encounter - Referrals - Patient Instructions - Post Discharge Activity
[2018-02-25 19:49] VITALS: BP 143/93; PULSE 119; TEMP 98.1; BMI 27.6
[2018-02-25] MEDS ORDERED: KETOROLAC TROMETHAMINE 60 MG/2 ML VIAL ONE (20:39)
--- NOTE | 2018-02-25 20:51 | PDOC ---
History of Present Illness - General Chief Complaint: Injury Stated Complaint: INJURY Time Seen by Provider: 02/25/18 19:35 - History of Present Illness Initial Comments: 02/25/18 20:44 CHIEF COMPLAINT: toe pain HISTORY OF PRESENT ILLNESS: 57 yo F with no PMH presents to fast track with pain to right 5th toe s/p injury yesterday. Patient reports that her dog "cut her off" and she accidentally ran her toe into the wall. She reports that she was able to walk yesterday and today but the pain worsened to the point that she "couldn't take it anymore." PAST MEDICAL HISTORY: Denies past medical history FAMILY HISTORY: Denies SOCIAL HISTORY: Denies tobacco, alcohol, illicit drug use. SURGICAL HISTORY: Denies ALLERGIES: No known drug allergies REVIEW OF SYSTEMS General/Constitutional:Denies weakness, weight change. Musculoskeletal: Right 5th toe pain. Skin: Denies easy bruising. PHYSICAL EXAM General Appearance: Well-appearing, appropriately dressed. No apparent distress , no intoxication. HEENT: EOMI, PERRLA Respiratory/Chest: Lungs CTAB. Cardiovascular: RRR. S1, S2. Musculoskeletal/Extremities: Erythema, swelling, tenderness to 5th right toe. FROM of all extremities, normal capillary refill. Pelvis Stable. No CVA tenderness. No tenderness to extremities, pedal edema, swelling, erythema or deformity. Integumentary: Appropriate color, dry, warm. No cyanosis, erythema, jaundice or rash Neurologic: syrup maker II-XII intact. Fully oriented, alert. Appropriate mood/affect. Motor strength 5/5. No appreciable EOM palsy, facial droop or sensory deficit. Past History - Past Medical History Allergies/Adverse Reactions: Allergies Allergy/AdvReac Type Severity Reaction Status Date / Time sulfamethoxazole Allergy Intermediate Rash Verified 02/25/18 19:36 [From Bactrim] Home Medications: Ambulatory Orders Cholecalciferol (Vitamin D3) [Vitamin D3] 50,000 unit PO MOFR 06/06/17 Albuterol Sulfate Inhaler - [Ventolin HFA Inhaler -] 1 - 2 inh IH QID #1 inhaler 09/10/17 Emtricitabine [Emtriva -] 1 tab PO DAILY #30 capsule 09/10/17 Etravirine [Intelence -] 200 mg PO BID #60 tablet 11/14/17 Multivitamin with Minerals [Icaps Plus] 1 each PO DAILY #30 tablet 09/10/17 Raltegravir [Isentress] 1 tab PO BID #60 tab 09/10/17 Theophylline Anhydrous [Ancelmo-24] 300 mg PO DAILY #30 cap.er.24h 09/10/17 Cyclobenzaprine HCl [Flexeril -] 10 mg PO TID #90 tablet 01/28/18 Hydrocodone/Acetaminophen [Hydrocodone-Acetamin 5-325 mg] 1 each PO TID PRN #45 tablet MDD 3 02/04/18 Diclofenac Sodium 50 mg PO BID #20 tablet. 02/25/18 Anemia: No Asthma: Yes Cancer: No Cardiac Disorders: No CVA: No COPD: Yes CHF: No DVT: No Dementia: No Diabetes: No GI Disorders: No Disorders: No HTN: Yes Hypercholesterolemia: No Liver Disease: No Seizures: No Thyroid Disease: No - Surgical History Abdominal Surgery: Yes (FOR ECTOPIC ) - Immunization History Immunization Up to Date: Yes - Suicide/Smoking/Psychosocial Hx Smoking Status: Yes Smoking History: Current every day smoker Have you smoked in the past 12 months: No Number of Cigarettes Smoked Daily: 10 Cigars Per Day: 0 Information on smoking cessation initiated: No 'Breaking Loose' booklet given: 03/11/15 Hx Alcohol Use: No Drug/Substance Use Hx: No Substance Use Type: None Hx Substance Use Treatment: Yes (detox, 12 step) *Physical Exam - Vital Signs Last Vital Signs Temp Pulse Resp BP Pulse Ox 98.1 F 119 H 18 143/93 96 02/25/18 19:36 02/25/18 19:36 02/25/18 19:36 02/25/18 19:36 02/25/18 19:36 Medical Decision Making - Medical Decision Making 02/25/18 20:46 57 yo F with no PMH presents to fast track with pain to right 5th toe s/p injury yesterday. X-ray negative for fracture. -60 mg Toradol -harriett tape, postop boot *DC/Admit/Observation/Transfer Diagnosis at time of Disposition: Toe injury Qualifiers: Encounter type: initial encounter Laterality: right Qualified Code(s): S99.921A - Unspecified injury of right foot, initial encounter - Discharge Dispostion Disposition: HOME Condition at time of disposition: Stable Admit: No - Prescriptions Prescriptions: Diclofenac Sodium 50 mg PO BID #20 tablet.dr - Referrals Referrals: Aniya Hagen NP [Primary Care Provider] - Jadon Escobar MD [Staff Physician] - - Patient Instructions Printed Discharge Instructions: Toe Sprain Additional Instructions: Please take medications as prescribed and wear the post op boot for at least one week. If your pain persists past 1 week, please follow up with orthopedics for possible physical therapy to improve mobility of your toe. If you develop any new or worsening symptoms, please return to the ER. - Post Discharge Activity
[2018-02-25] MEDS ORDERED: KETOROLAC TROMETHAMINE 60 MG/2 ML VIAL IM ONE (21:37)
== END 2018-02-25 20:59 | disposition home or self-care (01) ==
LOC: JERFT 19:30
PROC: 2W3UXYZ Immobilization of Right Toe using Other Device (ICD-10-PCS; principal; 2018-02-25)
DX: S99.921A Unspecified injury of right foot, initial encounter (principal); W22.01XA Walked into wall, initial encounter; Y93.89 Activity, other specified; Y92.9 Unspecified place or not applicable
CPT/HCPCS: 29550; 73660-TC-FY; 99281-25

== ENCOUNTER 2018-08-11 15:55 | Emergency (ER) | payer OTHER ==
[2018-08-11 16:00] VITALS: TEMP 99.4; BMI 28.3
[2018-08-11] MEDS ORDERED: SODIUM CHLORIDE 0.9% 500 ML INFUS.BAG IV ONE (17:40)
--- NOTE | 2018-08-11 17:40 | PDOC ---
Attending Attestation - HPI HPI: 08/11/18 18:29 The patient is a 57 year old female, with a significant past medical history of COPD, HTN, HIV (viral load undetectable), who presents to the emergency department with, shortness of breath, runny nose, and nonproductive cough. As per patient, she has positive sick contacts and has been feeling ill since. Patient notes one episode of pneumonia in the past and notes her symptoms feel similar to that. She used her at home nebulizers, without relief prompting her visit to the ER today. She denies recent, headache or dizziness. She denies recent nausea, vomit, diarrhea or constipation. She denies recent dysuria, frequency, urgency or hematuria. She denies recent chest pain. Allergies: Sulfamethoxazole. Social history: Smoker. Primary Care Physician: Aniya Hagen NP <Keila Cantu - Last Filed: 08/11/18 18:29> - Resident Resident Name: Parris Heredia - HPI HPI: 08/11/18 18:01 Pt presents to the ED Complaining of non productive cough, subjective fever and shortness of breath. History of HIV with unknown CD4 count, compliant with meds. Also has COPD. - Physicial Exam PE: 08/11/18 18:02 agree with resident exam. PAtient is alert and oriented but is also tachypenic and tachycardic. + wheezes in the bases bilaterally with good air entry. 08/11/18 19:33 - Medical Decision Making 08/11/18 19:39 Pt presents to the ED complaining of shortness of breath, non productive cough and wheezing. COPD exacerbation vs PNA. Will check labs and CXR, treat with nebs and steroids and antibiotics. <Radha Smith - Last Filed: 08/11/18 19:41> Attestations - Attestations 08/11/18 18:29 Documentation prepared by Keila Cantu, acting as medical illustrator for Radha Smith MD. <Keila Cantu - Last Filed: 08/11/18 18:29>
[2018-08-11] MEDS ORDERED: methylPREDNISolone NA SUCC 125 MG/2 ML VIAL IVPB ONE (17:42)
[2018-08-11] MEDS ORDERED: ALBUTEROL SO4 2.5/IPRATROPIUM 0.5 INH SOL 3 ML VIAL.NEB. NEB ONE ×2 (17:42→18:43)
[2018-08-11 18:21] LABS: EOS % 2.8 % (0-4.5); HEMATOCRIT 40.2 % (32.4-45.2); HEMOGLOBIN 13.6 GM/dL (10.7-15.3); LYMPH % 33.4 % (8-40); MCH 32.3 pg (25.7-33.7); MCHC 33.7 g/dl (32.0-36.0); MEAN CELL VOLUME 95.9 fl (80-96); MEAN PLT VOLUME 9.9 fl (7.5-11.1); NEUT % 52.8 % (42.8-82.8); PLATELET COUNT 167 K/MM3 (134-434); RBC 4.19 M/mm3 (3.60-5.2); RDW 12.8 % (11.6-15.6); WHITE BLOOD COUNT 6.3 K/mm3 (4.0-10.0)
[2018-08-11] MEDS ORDERED: methylPREDNISolone NA SUCC 125 MG/2 ML VIAL ONE (18:44)
--- NOTE | 2018-08-11 18:49 | PDOC ---
History of Present Illness - General Chief Complaint: Shortness of Breath Stated Complaint: CHEST PAIN Time Seen by Provider: 08/11/18 17:39 - History of Present Illness Initial Comments: 08/11/18 18:48 The patient is a 57 year old female with a PMH of HIV (acquired sexually 25 years previous, undetectable viral load, on ART), COPD (not on home O2) and HTN presents to our ED this evening c/o 2 day h/o dyspnea, runny nose and non- productive cough. Patient use nebulizer at home with little relief of symptoms. Patient notes sick contact with family friend who had viral URI symptoms. Patient states she is especially concerned about PNA because of her HIV+ status. Patient denies chest pain, abdominal pain, nausea/vomiting, diarrhea/ constipation, dsyuria/hematuria. Allergy: Sulfamethoxazole Surgery: none reported Social: 5 cigarettes daily, denies alcohol, denies recreational drugs Primary care: Aniya Tejeda Past History - Past Medical History Allergies/Adverse Reactions: Allergies Allergy/AdvReac Type Severity Reaction Status Date / Time sulfamethoxazole Allergy Intermediate Rash Verified 08/11/18 15:56 [From Bactrim] Home Medications: Ambulatory Orders Albuterol Sulfate Inhaler - [Ventolin HFA Inhaler -] 1 - 2 inh IH QID #1 inhaler 05/05/18 Atorvastatin Ca [Lipitor] 20 mg PO HS #30 tablet 05/05/18 Theophylline Anhydrous [Ancelmo-24] 300 mg PO DAILY #30 cap.er.24h 05/05/18 Bictegrav/Emtricit/Tenofov Ala [Biktarvy 50-200-25 mg Tablet] 1 each PO DAILY # 30 tablet 05/14/18 Azithromycin 500 mg PO DAILY #5 tablet 08/11/18 predniSONE [Deltasone -] 40 mg PO DAILY #4 tablet 08/11/18 Anemia: No Asthma: Yes Cancer: No Cardiac Disorders: No CVA: No COPD: Yes CHF: No DVT: No Dementia: No Diabetes: No GI Disorders: No Disorders: No HTN: Yes Hypercholesterolemia: No Liver Disease: No Seizures: No Thyroid Disease: No - Surgical History Abdominal Surgery: Yes (FOR ECTOPIC ) - Immunization History Immunization Up to Date: Yes - Suicide/Smoking/Psychosocial Hx Smoking Status: Yes Smoking History: Current every day smoker Have you smoked in the past 12 months: Yes Number of Cigarettes Smoked Daily: 10 Cigars Per Day: 0 Information on smoking cessation initiated: Yes 'Breaking Loose' booklet given: 08/11/18 Hx Alcohol Use: No Drug/Substance Use Hx: No Substance Use Type: None Hx Substance Use Treatment: Yes (detox, 12 step) Review of Systems - Review of Systems Constitutional: No: Chills, Fever HEENTM: No: Blurred Vision, Double Vision Respiratory: Yes: Cough, Shortness of Breath, Wheezing. No: Hemoptysis Cardiac (ROS): No: Chest Pain, Lightheadedness, Palpitations, Syncope ABD/GI: No: Constipated, Diarrhea, Nausea, Vomiting *Physical Exam - Vital Signs Last Vital Signs Temp Pulse Resp BP Pulse Ox 99.4 F 118 H 24 H 165/88 96 08/11/18 15:58 08/11/18 15:58 08/11/18 15:58 08/11/18 15:58 08/11/18 15:58 - Physical Exam General Appearance: Yes: Nourished, Appropriately Dressed HEENT: positive: Normal Voice, Hearing Grossly Normal Neck: positive: Trachea midline, Supple Respiratory/Chest: positive: Wheezing (Scattered wheezes). negative: Labored Respiration, Rapid RR Cardiovascular: positive: S1, S2, Systolic Murmur. negative: Edema, JVD Vascular Pulses: Dorsalis-Pedis (R): 2+, Doralis-Pedis (L): 2+ Gastrointestinal/Abdominal: positive: Normal Bowel Sounds, Soft Musculoskeletal: negative: CVA Tenderness (R), CVA Tenderness (L) Extremity: positive: Normal Capillary Refill, Normal Inspection Integumentary: positive: Normal Color, Dry, Warm Neurologic: positive: division sales manager II-XII NML intact, Fully Oriented, Alert ED Treatment Course - LABORATORY CBC & Chemistry Diagram: 08/11/18 18:00 08/11/18 18:00 - ADDITIONAL ORDERS Additional order review: 08/11/18 18:00 RBC 4.19 MCV 95.9 MCHC 33.7 RDW 12.8 MPV 9.9 Neutrophils % 52.8 Lymphocytes % 33.4 Monocytes % 10.0 Eosinophils % 2.8 Basophils % 1.0 - RADIOLOGY Radiology Studies Ordered: Category Date Time Status CXRPORT [CHEST X-RAY PORTABLE*] [RAD] Stat Radiology 08/11/18 17:43 Ordered Medical Decision Making - Medical Decision Making 08/11/18 18:49 57 year old female with h/o COPD and HIV presents with productive cough. Hypertensive (165/88), Tachycardic (HR 118) and intermittently tachypneic (RR 22 ). Frontal diagnosis: COPD exacerbation vs. PNA vs. Viral URI. Will obtain basic labs, Duo-Nebs x1, Levaquin, Solumedrol. VS Q1H, Reassess. 08/11/18 20:00 BP improved 118/93 Troponin negative No leukocytosis, CMP unremarkable Given patient's initial VS as well as comorobidities including COPD patient should be admitted for observation, supportive care. Patient refusing admission. Counseled patient on risks including worsening shortness of breath, cardio-pulmonary sequelae and possible . Patient acknowledges understanding of risks and wishes to be discharged AMA. Patient counseled on return precautions and discharged AMA. *DC/Admit/Observation/Transfer Diagnosis at time of Disposition: Productive cough, COPD exacerbation - Discharge Dispostion Disposition: AGAINST MEDICAL ADVICE Condition at time of disposition: Fair - Prescriptions Prescriptions: Azithromycin 500 mg PO DAILY #5 tablet predniSONE [Deltasone -] 40 mg PO DAILY #4 tablet - Referrals Referrals: Aniya Hagen ADVERTISING EDITOR [Primary Care Provider] - - Patient Instructions Additional Instructions: You are choosing to leave against medical advice. We have sent a prescription for steroids and an antibiotic to your pharmacy. Please take the entire prescribed course. Follow up with your primary care doctor in the next 24 hours. Return to the Emergency Department for any new/worsening/concerning symptoms. - Post Discharge Activity
[2018-08-11 19:15] LABS: ALBUMIN 3.7 g/dl (3.4-5.0); ALK PHOS 90 U/L (45-117); ANION GAP 6 MMOL/L (8-16); BILIRUBIN,TOTAL 0.2 mg/dL (0.2-1); BLOOD UREA NITROGEN 15 mg/dL (7-18); CALCIUM 9.5 mg/dL (8.5-10.1); CHLORIDE 108 mmol/L (98-107); CO2 27 mmol/L (21-32); CREATININE 0.6 mg/dL (0.55-1.3); GLUCOSE,RANDOM 85 mg/dL (74-106); POTASSIUM 4.3 mmol/L (3.5-5.1); SGOT/AST 27 U/L (15-37); SGPT/ALT 37 U/L (13-61); SODIUM 140 mmol/L (136-145)
[2018-08-11 20:06] VITALS: BP 118/93; PULSE 98
--- NOTE | 2018-08-12 17:03 | EKG ---
Test Reason : Blood Pressure : / mmHG Vent. Rate : 111 BPM Atrial Rate : 111 BPM P-R Int : 164 ms QRS Dur : 070 ms QT Int : 314 ms P-R-T Axes : 065 031 063 degrees QTc Int : 427 ms SINUS TACHYCARDIA INFERIOR INFARCT , AGE UNDETERMINED ABNORMAL ECG WHEN COMPARED WITH ECG OF 05-MAY-2018 11:17, INFERIOR INFARCT IS NOW PRESENT Confirmed by MD DENNIS, DIGNA ([id number]) on 08/12/2018 5:03:44 PM Referred By: Confirmed By:DIGNA COLLINS MD
== END 2018-08-11 20:55 | disposition left against medical advice (07) ==
LOC: JER 15:55
PROC: 3E0F7GC Introduction of Other Therapeutic Substance into Respiratory Tract, Via Natural or Artificial Opening (ICD-10-PCS; principal; 2018-08-11)
PROC: 3E03329 Introduction of Other Anti-infective into Peripheral Vein, Percutaneous Approach (ICD-10-PCS; 2018-08-11)
PROC: 3E0333Z Introduction of Anti-inflammatory into Peripheral Vein, Percutaneous Approach (ICD-10-PCS; 2018-08-11)
DX: J44.1 Chronic obstructive pulmonary disease with (acute) exacerbation (principal); I10 Essential (primary) hypertension; Z21 Asymptomatic human immunodeficiency virus [HIV] infection status
CPT/HCPCS: 36415; 71045-TC-FY; 80053; 82550; 84484; 85025; 93005; 93010; 99283-25